=== PATIENT | female | born 1990 | race African-American/Black ===

== ENCOUNTER 2018-08-15 20:04 | Emergency (ER) | payer OTHER ==
[~2018-08-15] VITALS: Ht 175.3 cm; Wt 90.9 kg
[~2018-08-15 20:04] MED LIST: CEPH500 PO
[2018-08-15] MEDS ORDERED: METF-960 PO (20:24)
[2018-08-15] MEDS ORDERED: PERTUSS(ACELL),DIPH,TET VAC/PF 0.5 ML VIAL IM ONE (22:00)
[2018-08-15] MEDS ORDERED: LIDOCAINE 2%/EPI 1:200,000/PF 20 ML VIAL INJ ONE (22:00)
[2018-08-15] MEDS ORDERED: IBUPROFEN 600 MG TABLET PO ONE (22:00)
[2018-08-15 23:49] VITALS: BP 148/88
== END 2018-08-15 23:50 | disposition home or self-care (01) ==
LOC: EMS 20:05
DX: N61.1 Abscess of the breast and nipple (principal); R09.89 Other specified symptoms and signs involving the circulatory and respiratory systems; F12.90 Cannabis use, unspecified, uncomplicated; Z88.0 Allergy status to penicillin
CPT/HCPCS: 10060; 90471; 90715

== ENCOUNTER 2018-12-31 08:43 | Emergency (ER) | payer MEDICARE, OTHER ==
[~2018-12-31] VITALS: Ht 180.3 cm; Wt 104.5 kg
[~2018-12-31 08:43] MED LIST changes: -CEPH500 PO; +METF-960 PO
[2018-12-31 09:48] LABS: BASOPHILS % (AUTO) 0.5 % (0.0-2.0); EOSINOPHILS % (AUTO) 2.1 % (1.0-6.0); HEMATOCRIT 32.2 % (36-46); HEMOGLOBIN 10.4 g/dL (12.0-16.0); LYMPHOCYTES % (AUTO) 39.3 % (22.0-44.0); MEAN CORPUSCULAR HEMOGLOBIN 28.1 pg (26.0-34.0); MEAN CORPUSCULAR HGB CONC 32.3 G/dL (31.0-37.0); MEAN CORPUSCULAR VOLUME 87 fL (80-100); MONOCYTES # (AUTO) 0.4 K/uL (0.1-1.0); MONOCYTES % (AUTO) 16.8 % (2.0-9.0); NEUTROPHILS # (AUTO) 1.1 K/uL (1.8-7.7); NEUTROPHILS % (AUTO) 41.3 % (40.0-70.0); PLATELET COUNT (AUTO) 221 K/uL (150-450); RED BLOOD CELL COUNT(AUTO) 3.69 MIL/uL (4.00-5.20); RED CELL DISTRIBUTION WIDTH 15.6 % (11.5-14.5)
[2018-12-31 09:59] LABS: ANION GAP 7 mmol/L (8-16); CALCIUM, TOTAL 8.8 mg/dL (8.8-10.5); CARBON DIOXIDE 27 mmol/L (22-29); CHLORIDE 101 mmol/L (98-107); CREATININE 0.63 mg/dL (0.60-1.30); GLOMERULAR FILTR. RATE CALC > 60 mL/min (>60); GLUCOSE,RANDOM 85 mg/dL (70-110); POTASSIUM 3.9 mmol/L (3.5-5.1); SODIUM SERUM 135 mmol/L (136-145); UREA NITROGEN, BLOOD 8 mg/dL (7-18)
[2018-12-31 10:10] LABS: ALANINE AMINOTRANSFERASE 11 U/L (12-78); ALBUMIN 3.3 g/dL (3.4-5.0); ALKALINE PHOSPHATASE 76 U/L (46-116); ASPARTATE AMINOTRANSFERASE 14 U/L (15-37); BILIRUBIN,TOTAL 0.4 mg/dL (0.1-1.0); HCG,QUANTITATIVE < 1 mIU/mL (0-6); TOTAL PROTEIN, SERUM 8.2 g/dL (6.4-8.2)
[2018-12-31 11:07] VITALS: BP 126/87
== END 2018-12-31 11:48 | disposition home or self-care (01) ==
LOC: EMS 08:44
DX: G56.03 Carpal tunnel syndrome, bilateral upper limbs (principal); R20.2 Paresthesia of skin; M25.562 Pain in left knee; M79.604 Pain in right leg; M79.605 Pain in left leg; F12.90 Cannabis use, unspecified, uncomplicated; Z88.0 Allergy status to penicillin; Z79.84 Long term (current) use of oral hypoglycemic drugs
CPT/HCPCS: 85379; 93970

== ENCOUNTER 2020-04-28 15:00 | Emergency (ER) | payer MEDICARE ==
[~2020-04-28] VITALS: Ht 175.3 cm; Wt 81.8 kg
[2020-04-28] MEDS ORDERED: ACET-2247 PO (15:06)
[2020-04-28] MEDS ORDERED: GABA-1181 PO (15:08)
[2020-04-28 16:07] VITALS: BP 134/88
== END 2020-04-28 16:18 | disposition home or self-care (01) ==
LOC: EMS 15:04
DX: K08.89 Other specified disorders of teeth and supporting structures (principal); R59.0 Localized enlarged lymph nodes; Z87.440 Personal history of urinary (tract) infections; Z79.899 Other long term (current) drug therapy; Z88.0 Allergy status to penicillin
CPT/HCPCS: 99283